=== PATIENT | male | born 1970 | race Caucasian/White ===

== ENCOUNTER 2017-05-07 00:43 | Inpatient (IN) | payer BC, OTHER ==
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
[2017-05-07 01:08] VITALS: BMI 22.8
[2017-05-07] MEDS ORDERED: MAG HYDROX/AL HYDROX/SIMETH 30 ML UNIT-DOSE CUP PO PRN (01:10)
[2017-05-07] MEDS ORDERED: P-EPHED 60MG/TRIPROLIDI 2.5MG TABLET PO PRN (01:10)
[2017-05-07] MEDS ORDERED: LOPERAMIDE HCL 2 MG CAPSULE PO PRN (01:10)
[2017-05-07] MEDS ORDERED: IBUPROFEN 400 MG TABLET (FP) PO PRN (01:10)
[2017-05-07] MEDS ORDERED: MAGNESIUM HYDROX 2400MG/30ML ORAL SUSPENSION 30 ML CUP PO PRN (01:10)
[2017-05-07] MEDS ORDERED: METHADONE HCL 10 MG TABLET (FOR DETOX USE ONLY) PO ONE ×3 (01:10→22:00)
[2017-05-07] MEDS ORDERED: chlordiazePOXIDE HCL 25 MG CAPSULE PO ONE (01:10)
[2017-05-07] MEDS ORDERED: guaiFENesin/D-METHORPHAN HB 10 ML UNIT-DOSE CUPS PO PRN (01:10)
[2017-05-07] MEDS ORDERED: hydrOXYzine PAMOATE 50 MG CAPSULE (FP) PO PRN (01:10)
[2017-05-07] MEDS ORDERED: diphenhydrAMINE HCL 50 MG CAPSULE PO PRN (01:10)
[2017-05-07] MEDS ORDERED: chlordiazePOXIDE HCL 25 MG CAPSULE PO PRN (01:10)
[2017-05-07] MEDS ORDERED: MENTHOL/PHENOL 1 EACH UD MM PRN (01:10)
[2017-05-07] MEDS ORDERED: MAGNESIUM CITRATE 300 ML BOTTLE PO PRN (01:10)
[2017-05-07] MEDS ORDERED: ACETAMINOPHEN 325 MG TABLET (FP) PO PRN (01:10)
[2017-05-07] MEDS: chlordiazePOXIDE HCL 25 MG CAPSULE PO SCH ×4 (06:02→22:41)
--- NOTE | 2017-05-07 09:59 | EKG ---
Test Reason : Blood Pressure : / mmHG Vent. Rate : 066 BPM Atrial Rate : 066 BPM P-R Int : 138 ms QRS Dur : 096 ms QT Int : 394 ms P-R-T Axes : 076 027 018 degrees QTc Int : 413 ms NORMAL SINUS RHYTHM NORMAL ECG NO PREVIOUS ECGS AVAILABLE Confirmed by ROGER RED MD ([id number]) on 05/07/2017 9:58:32 AM Referred By: Confirmed By:ROGER RED MD
[2017-05-07 10:07] LABS: MCH 26.7 pg (25.7-33.7); MCHC 32.4 g/dl (32.0-35.9); MEAN CELL VOLUME 82.2 fl (80-96); MEAN PLT VOLUME 6.5 fl (7.5-11.1); PLATELET COUNT 280 K/MM3 (134-434); RDW 14.8 % (11.9-15.9); WHITE BLOOD COUNT 6.6 K/mm3 (4.0-10.0)
[2017-05-07 10:49] LABS: ALBUMIN 2.7 g/dl (3.4-5.0); ALK PHOS 94 U/L (45-117); ANION GAP 5 (8-16); BILIRUBIN,TOTAL 0.5 mg/dL (0.2-1.0); CALCIUM 8.6 mg/dL (8.5-10.1); CO2 32 mmol/L (21-32); CREATININE 0.9 mg/dL (0.7-1.3); GLUCOSE,RANDOM 94 mg/dL (74-106); SGOT/AST 61 U/L (15-37); SGPT/ALT 41 U/L (12-78); TOT PROT 6.2 g/dl (6.4-8.2)
[2017-05-07 11:27] LABS: HIV 1 & 2 AB NEGATIVE; HIV 1 AGp24 NEGATIVE
[2017-05-07] MEDS: PRENATAL VITAMINS W/ FOLIC ACID TABLET (FP) PO SCH (11:32)
--- NOTE | 2017-05-07 13:45 | PN ---
S Progress Note Note: Vp Production made 3 attempts to evaluate patient. In all three occasions, he was found in bed sleeping, very drowsy not making much sense in his response. Interview deferred for another time
--- NOTE | 2017-05-07 16:22 | PN ---
[facility] Progress Note Note: Patient denies any complaints at this time. Last Vital Signs Temp Pulse Resp BP Pulse Ox 97.4 F L 67 18 125/68 05/07/17 03:07 05/07/17 03:07 05/07/17 03:30 05/07/17 03:07 VSS, patient is in nad; patient encouraged to drink lots of water,continue detox Laboratory Tests 05/07/17 05/07/17 05/07/17 08:00 08:00 08:00 WBC 6.6 RBC 4.68 Hgb 12.5 Hct 38.5 MCV 82.2 MCH 26.7 MCHC 32.4 RDW 14.8 Plt Count 280 MPV 6.5 L Sodium 140 Potassium 3.9 Chloride 103 Carbon Dioxide 32 Anion Gap 5 L BUN 14 Creatinine 0.9 Creat Clearance w eGFR > 60 Random Glucose 94 Calcium 8.6 Total Bilirubin 0.5 AST 61 H ALT 41 Alkaline Phosphatase 94 Total Protein 6.2 L Albumin 2.7 L RPR Titer Nonreactive HIV 1&2 Antibody Screen HIV P24 Antigen 05/07/17 08:00 WBC RBC Hgb Hct MCV MCH MCHC RDW Plt Count MPV Sodium Potassium Chloride Carbon Dioxide Anion Gap BUN Creatinine Creat Clearance w eGFR Random Glucose Calcium Total Bilirubin AST ALT Alkaline Phosphatase Total Protein Albumin RPR Titer HIV 1&2 Antibody Screen Negative HIV P24 Antigen Negative Labs noted
[2017-05-07] MEDS: THIAMINE HCL 100 MG TABLET (FP) PO SCH (22:41)
[2017-05-08] MEDS: chlordiazePOXIDE HCL 25 MG CAPSULE PO SCH ×4 (05:54→22:28)
--- NOTE | 2017-05-08 09:30 | PN ---
[facility] CIWA - CIWA Score Nausea/Vomitin Muscle Tremors: 2 Anxiety: 4-Mod. Anxious/Guarded Agitation: 4-Moderately Restless Paroxysmal Sweats: 3 Orientation: 0-Oriented Tacttile Disturbances: 0-None Auditory Disturbances: 0-None Visual Disturbances: 0-None Headache: 0-None Present CIWA-Ar Total Score: 16 BHS COWS - Scale Resting Pulse: 1= [place] 81-100 Sweatin= Chills/Flushing Restless Observation: 1= Difficult to Sit Still Pupil Size: 1= Pupils >than Normal Bone or Joint Aches: 1= Mild Discomfort Runny Nose/ Eye Tearin= Nasal Congestion GI Upset > 30mins: 2= Nausea/Diarrhea Tremor Observation of Outstretched Hands: 1= Tremor [place], Not Seen Yawning Observation: 1= 1-2x During Session Anxiety or Irritability: 2=Irritable/Anxious Goose Flesh Skin: 3=Piloerection COWS Score: 15 S Progress Note (SOAP) Subjective: nausa, sweats, interrupted sleep, anxiety, mild treor, does nto want to have vital signs, requesting detox from [facility] ldm 04/22 10mg confirmed by nurse Objective: 05/08/17 09:29 Vital Signs - 24 hr 05/07/17 05/07/17 05/08/17 17:29 22:08 00:30 Temperature 98.2 F 98 F Pulse Rate 72 90 Respiratory 18 18 18 Rate Blood Pressure 134/77 135/71 05/08/17 05/08/17 05/08/17 03:30 06:23 09:14 Temperature 97.1 F L 97.7 F Pulse Rate 79 91 H Respiratory 18 18 20 Rate Blood Pressure 125/86 150/82 Laboratory Tests 05/07/17 05/07/17 05/07/17 08:00 08:00 08:00 WBC 6.6 RBC 4.68 Hgb 12.5 Hct 38.5 MCV 82.2 MCH 26.7 MCHC 32.4 RDW 14.8 Plt Count 280 MPV 6.5 L Sodium 140 Potassium 3.9 Chloride 103 Carbon Dioxide 32 Anion Gap 5 L BUN 14 Creatinine 0.9 Creat Clearance w eGFR > 60 Random Glucose 94 Calcium 8.6 Total Bilirubin 0.5 AST 61 H ALT 41 Alkaline Phosphatase 94 Total Protein 6.2 L Albumin 2.7 L RPR Titer Nonreactive HIV 1&2 Antibody Screen HIV P24 Antigen 05/07/17 08:00 WBC RBC Hgb Hct MCV MCH MCHC RDW Plt Count MPV Sodium Potassium Chloride Carbon Dioxide Anion Gap BUN Creatinine Creat Clearance w eGFR Random Glucose Calcium Total Bilirubin AST ALT Alkaline Phosphatase Total Protein Albumin RPR Titer HIV 1&2 Antibody Screen Negative HIV P24 Antigen Negative Assessment: 05/08/17 09:29 withdrawal sx, patient not cooperating with vital signs Plan: cont detox, patient iformed he can not be mediated unless he has his vitalsigns taken, fluids, encourage ambulation, ensure, symptomatic relief of withdrawal
[2017-05-08] MEDS ORDERED: METHADONE HCL 5 MG TABLET (FOR DETOX USE ONLY) PO SCH (10:00)
[2017-05-08] MEDS: PRENATAL VITAMINS W/ FOLIC ACID TABLET (FP) PO SCH (10:37)
--- NOTE | 2017-05-08 12:25 | CONSULT ---
[facility] Psychiatric Consult - Data Date of interview: 05/08/17 Admission source: [facility] Identifying data: Patient refused psychiatric interview.Nursing staff is made aware.
[2017-05-08 13:42] LABS: URINE APPEARANCE CLEAR; URINE BILIRUBIN NEGATIVE (NEGATIVE); URINE BLOOD NEGATIVE (NEGATIVE); URINE COLOR COLORLESS; URINE GLUCOSE (UA) NEGATIVE (NEGATIVE); URINE KETONE NEGATIVE (NEGATIVE); URINE LEUK ESTERASE NEGATIVE (NEGATIVE); URINE NITRITE NEGATIVE (NEGATIVE); URINE PROTEIN NEGATIVE (NEGATIVE); URINE UROBILINOGEN NEGATIVE mg/dL (0.2-1.0)
[2017-05-08] MEDS: THIAMINE HCL 100 MG TABLET (FP) PO SCH (22:28)
[2017-05-09] MEDS: chlordiazePOXIDE 5 MG CAPSULE PO SCH ×2 (06:26→10:27)
[2017-05-09 09:23] VITALS: TEMP 98.6
[2017-05-09] MEDS ORDERED: METHADONE HCL 5 MG TABLET (FOR DETOX USE ONLY) PO SCH (10:00)
[2017-05-09] MEDS: PRENATAL VITAMINS W/ FOLIC ACID TABLET (FP) PO SCH (10:26)
--- NOTE | 2017-05-09 12:07 | PN ---
[facility] CIWA - CIWA Score Nausea/Vomitin-No Nausea/No Vomiting Muscle Tremors: 2 Anxiety: 5 Agitation: 3 Paroxysmal Sweats: 2 Orientation: 2-Disoriented Date<2 days Tacttile Disturbances: 3-Moderate Itch/Numb/Burn Auditory Disturbances: 2-Mild Harshness/Frighten Visual Disturbances: 0-None Headache: 0-None Present CIWA-Ar Total Score: 19 BHS COWS - Scale Resting Pulse: 1= [place] 81-100 Sweatin= Chills/Flushing Restless Observation: 1= Difficult to Sit Still Pupil Size: 0= Normal to Room Light Bone or Joint Aches: 2= Severe Diffuse Aches Runny Nose/ Eye Tearin= Nasal Congestion GI Upset > 30mins: 1= Stomach Cramp Tremor Observation of Outstretched Hands: 2= Slight Tremor Visible Yawning Observation: 1= 1-2x During Session Anxiety or Irritability: 2=Irritable/Anxious Goose Flesh Skin: 3=Piloerection COWS Score: 15 S Progress Note (SOAP) Subjective: Tremors, Sweating, Body Aches, Anxious. Objective: PT. A & O X 2 (DISORIENTED ABOUT DAY / DATE). PT. OBSERVED AMBULATING ON UNIT. NO ACUTE DISTRESS. PT. DENIES CHEST PAIN. 05/09/17 12:15 Vital Signs Temperature 98.6 F 05/09/17 09:22 Pulse Rate 90 05/09/17 09:22 Respiratory Rate 20 05/09/17 09:22 Blood Pressure 139/65 05/09/17 09:22 O2 Sat by Pulse Oximetry (%) Laboratory Tests 05/07/17 05/07/17 05/07/17 08:00 08:00 08:00 WBC 6.6 RBC 4.68 Hgb 12.5 Hct 38.5 MCV 82.2 MCH 26.7 MCHC 32.4 RDW 14.8 Plt Count 280 MPV 6.5 L Sodium 140 Potassium 3.9 Chloride 103 Carbon Dioxide 32 Anion Gap 5 L BUN 14 Creatinine 0.9 Creat Clearance w eGFR > 60 Random Glucose 94 Calcium 8.6 Total Bilirubin 0.5 AST 61 H ALT 41 Alkaline Phosphatase 94 Total Protein 6.2 L Albumin 2.7 L Urine Color Urine Appearance Urine pH Ur Specific [place] Urine Protein Urine Glucose (UA) Urine Ketones Urine Blood Urine Nitrite Urine Bilirubin Urine Urobilinogen RPR Titer Nonreactive HIV 1&2 Antibody Screen HIV P24 Antigen 05/07/17 05/08/17 08:00 11:40 WBC RBC Hgb Hct MCV MCH MCHC RDW Plt Count MPV Sodium Potassium Chloride Carbon Dioxide Anion Gap BUN Creatinine Creat Clearance w eGFR Random Glucose Calcium Total Bilirubin AST ALT Alkaline Phosphatase Total Protein Albumin Urine Color Colorless Urine Appearance Clear Urine pH 7.0 Ur Specific [place] 1.010 Urine Protein Negative Urine Glucose (UA) Negative Urine Ketones Negative Urine Blood Negative Urine Nitrite Negative Urine Bilirubin Negative Urine Urobilinogen Negative RPR Titer HIV 1&2 Antibody Screen Negative HIV P24 Antigen Negative LABS NOTED. Assessment: 05/09/17 12:16 WITHDRAWAL SYMPTOMS. Plan: CONTINUE DETOX. INCREASE DAILY PO FLUID INTAKE.
--- NOTE | 2017-05-09 13:22 | PN ---
[facility] Progress Note Note: Psychiatry Attending's note : Called to evaluate this patient. Reason : wants to leave the unit AMA + threats to harm others. Mr Del Valle is angry for no apparent reason.States that he is going to kill his . Since his admission to [address] [place] [address],patient has refused to talk to psychiatrists. He is angry,hostile,menacing and intimidating.Making overt homicidal threats. " Wait and see.I will kill them all." Patient cannot be managed on this unit. Violent.Patient is converted to 2 PC status.Declines to accept his notice of rights. EMS activated for transfer to the psychiatric department at [facility]. Attempts made to WARN Juju Evans at [phone] : No answer.Message left. [employer] is called for assistance due to this patient's escalating and disruptive behavior. Mr Del Valle is taken to [facility] psychiatric emergency department via EMS. Escorted by officers from [place] [employer].
[2017-05-09 14:30] VITALS: BP 133/68; PULSE 89
[2017-05-10] MEDS ORDERED: chlordiazePOXIDE HCL 10 MG CAPSULE PO SCH (05:00)
[2017-05-11] MEDS ORDERED: METHADONE HCL 10 MG TABLET (FOR DETOX USE ONLY) PO SCH (10:00)
[2017-05-12] MEDS ORDERED: METHADONE HCL 10 MG TABLET (FOR DETOX USE ONLY) PO SCH (06:00)
== END 2017-05-09 13:30 | DRG 773 ==
LOC: YASAS 00:43 → Y3N 00:46
PROVIDERS: ADMIT Internal Medicine; ATTEND Internal Medicine
PROC: HZ2ZZZZ Detoxification Services for Substance Abuse Treatment (ICD-10-PCS; principal; 2017-05-07)
PROC: HZ2ZZZZ Detoxification Services for Substance Abuse Treatment (ICD-10-PCS; 2017-05-07)
DX: F11.23 Opioid dependence with withdrawal (principal); F10.230 Alcohol dependence with withdrawal, uncomplicated; F14.20 Cocaine dependence, uncomplicated; F31.9 Bipolar disorder, unspecified; F43.10 Post-traumatic stress disorder, unspecified; F17.210 Nicotine dependence, cigarettes, uncomplicated; Z59.0 Homelessness
CPT/HCPCS: 36415; 80053; 81003; 85027; 86593; 87389; 93005; 93010

== ENCOUNTER 2021-06-16 15:23 | Inpatient (IN) | payer OTHER ==
[2021-06-16 16:58] VITALS: BMI 26.7
[2021-06-16] MEDS ORDERED: NICOTINE 10 MG CARTRIDGE (INHALER) IH PRN (18:30)
[2021-06-16] MEDS ORDERED: METHOCARBAMOL 500 MG TABLET PO PRN (18:30)
[2021-06-16] MEDS ORDERED: IBUPROFEN 400 MG TABLET (FP) PO PRN (18:30)
[2021-06-16] MEDS ORDERED: ONDANSETRON *ODT* 4 MG TABLET SL PRN (18:30)
[2021-06-16] MEDS ORDERED: MAGNESIUM CITRATE 300 ML BOTTLE PO PRN (18:30)
[2021-06-16] MEDS ORDERED: MAGNESIUM HYDROX 2400MG/30ML ORAL SUSPENSION 30 ML CUP PO PRN (18:30)
[2021-06-16] MEDS ORDERED: BISMUTH SUBSALICYLATE 524 MG/30 ML PO PRN (18:30)
[2021-06-16] MEDS ORDERED: MENTHOL/PHENOL 1 EACH UD MM PRN (18:30)
[2021-06-16] MEDS ORDERED: ACETAMINOPHEN 325 MG TABLET (FP) PO PRN ×2 (18:30)
[2021-06-16] MEDS: MELATONIN 5 MG TABLETS PO SCH (22:29)
[2021-06-16] MEDS: hydrOXYzine PAMOATE 25 MG CAPSULE (FP) PO SCH (22:29)
[2021-06-16] MEDS: THIAMINE HCL 100 MG TABLET (FP) PO SCH (22:29)
[2021-06-17] MEDS: hydrOXYzine PAMOATE 25 MG CAPSULE (FP) PO SCH (06:02)
[2021-06-17] MEDS ORDERED: hydrOXYzine PAMOATE 25 MG CAPSULE (FP) PO PRN (08:45)
[2021-06-17] MEDS ORDERED: methaDONE HCL 10 MG TABLET PO ONE (08:46)
[2021-06-17] MEDS ORDERED: methaDONE HCL 10 MG TABLET ONE (09:08)
[2021-06-17] MEDS: PRENATAL VITAMINS W/ FOLIC ACID TABLET (FP) PO SCH (09:36)
[2021-06-17] MEDS ORDERED: diazePAM 5 MG TABLET PO PRN (10:13)
[2021-06-17 10:16] LABS: HEMATOCRIT 33.1 % (35.4-49); HEMOGLOBIN 11.1 GM/dL (11.7-16.9); MCH 27.7 pg (25.7-33.7); MCHC 33.6 g/dl (32.0-35.9); MEAN CELL VOLUME 82.4 fl (80-96); MEAN PLT VOLUME 6.4 fl (7.5-11.1); PLATELET COUNT 225 10^3/uL (134-434); RBC 4.01 M/mm3 (4.00-5.60); RDW 14.8 % (11.9-15.9)
[2021-06-17 10:43] LABS: ALBUMIN 2.9 g/dl (3.4-5.0); BLOOD UREA NITROGEN 15.4 mg/dL (7-18); CALCIUM 8.6 mg/dL (8.5-10.1)
[2021-06-17 10:46] LABS: CREATININE 1.1 mg/dL (0.55-1.3)
[2021-06-17 10:48] LABS: BILIRUBIN,TOTAL 0.5 mg/dL (0.2-1); TOT PROT 6.6 g/dl (6.4-8.2)
[2021-06-17] MEDS: diazePAM 5 MG TABLET PO SCH ×3 (10:49→22:22)
[2021-06-17] MEDS: MELATONIN 5 MG TABLETS PO SCH (22:21)
[2021-06-17] MEDS: THIAMINE HCL 100 MG TABLET (FP) PO SCH (22:21)
[2021-06-17] MEDS: risperiDONE 1 MG TABLET PO SCH (22:21)
[2021-06-18] MEDS ORDERED: methaDONE HCL 10 MG TABLET ONE (04:35)
[2021-06-18] MEDS: diazePAM 5 MG TABLET PO SCH ×4 (05:25→22:15)
[2021-06-18] MEDS ORDERED: methaDONE HCL 40 MG DISPERSABLE TABLET PO SCH (06:00)
[2021-06-18] MEDS: PRENATAL VITAMINS W/ FOLIC ACID TABLET (FP) PO SCH (10:12)
[2021-06-18] MEDS: SERTRALINE HCL 50 MG TABLET (FP) PO SCH (10:12)
[2021-06-18] MEDS: MELATONIN 5 MG TABLETS PO SCH (22:15)
[2021-06-18] MEDS: risperiDONE 1 MG TABLET PO SCH (22:15)
[2021-06-18] MEDS: THIAMINE HCL 100 MG TABLET (FP) PO SCH (22:15)
[2021-06-18] MEDS: MAG HYDROX/AL HYDROX/SIMETH 30 ML UNIT-DOSE CUP PO PRN (22:16)
[2021-06-19] MEDS ORDERED: methaDONE HCL 10 MG TABLET ONE (04:31)
[2021-06-19] MEDS: diazePAM 5 MG TABLET PO SCH ×3 (05:52→22:11)
[2021-06-19] MEDS: PRENATAL VITAMINS W/ FOLIC ACID TABLET (FP) PO SCH (10:36)
[2021-06-19] MEDS: SERTRALINE HCL 50 MG TABLET (FP) PO SCH (10:36)
[2021-06-19] MEDS: MAG HYDROX/AL HYDROX/SIMETH 30 ML UNIT-DOSE CUP PO PRN (18:29)
[2021-06-19] MEDS: THIAMINE HCL 100 MG TABLET (FP) PO SCH (22:10)
[2021-06-19] MEDS: MELATONIN 5 MG TABLETS PO SCH (22:10)
[2021-06-19] MEDS: risperiDONE 1 MG TABLET PO SCH (22:11)
[2021-06-20] MEDS ORDERED: methaDONE HCL 10 MG TABLET ONE (04:48)
[2021-06-20] MEDS: diazePAM 5 MG TABLET PO SCH ×2 (06:18→17:46)
[2021-06-20] MEDS: SERTRALINE HCL 50 MG TABLET (FP) PO SCH (10:17)
[2021-06-20] MEDS: PRENATAL VITAMINS W/ FOLIC ACID TABLET (FP) PO SCH (10:17)
[2021-06-20] MEDS: MAG HYDROX/AL HYDROX/SIMETH 30 ML UNIT-DOSE CUP PO PRN (17:44)
[2021-06-20] MEDS: MELATONIN 5 MG TABLETS PO SCH (22:51)
[2021-06-20] MEDS: risperiDONE 1 MG TABLET PO SCH (22:51)
[2021-06-20] MEDS: THIAMINE HCL 100 MG TABLET (FP) PO SCH (22:51)
[2021-06-21] MEDS ORDERED: methaDONE HCL 10 MG TABLET ONE (04:32)
[2021-06-21] MEDS ORDERED: diazePAM 5 MG TABLET PO ONE (06:00)
[2021-06-21 08:54] VITALS: BP 144/92; PULSE 100; TEMP 97.1
[2021-06-21] MEDS: PRENATAL VITAMINS W/ FOLIC ACID TABLET (FP) PO SCH (09:00)
[2021-06-21] MEDS: SERTRALINE HCL 50 MG TABLET (FP) PO SCH (09:00)
== END 2021-06-21 09:44 | disposition home or self-care (01) | DRG 773 ==
LOC: YASAS 15:23 → Y3N 19:56
PROVIDERS: ADMIT Allergy & Immunology; ATTEND Allergy & Immunology
PROC: HZ2ZZZZ Detoxification Services for Substance Abuse Treatment (ICD-10-PCS; principal; 2021-06-16)
DX: F11.23 Opioid dependence with withdrawal (principal); F10.230 Alcohol dependence with withdrawal, uncomplicated; F14.20 Cocaine dependence, uncomplicated; F17.210 Nicotine dependence, cigarettes, uncomplicated; F19.24 Other psychoactive substance dependence with psychoactive substance-induced mood disorder; F43.10 Post-traumatic stress disorder, unspecified; Z87.828 Personal history of other (healed) physical injury and trauma; Z88.0 Allergy status to penicillin; Z56.0 Unemployment, unspecified; Z59.00 Homelessness unspecified
CPT/HCPCS: 36415; 80053; 85027; 86780; C9803; J2794; U0003; U0005

== ENCOUNTER 2022-08-31 09:52 | Inpatient (IN) | payer OTHER ==
[2022-08-31 10:23] VITALS: BMI 22.4
[2022-08-31] MEDS ORDERED: MAG HYDROX/AL HYDROX/SIMETH 30 ML UNIT-DOSE CUP PO PRN (10:50)
[2022-08-31] MEDS ORDERED: ACETAMINOPHEN 325 MG TABLET (FP) PO PRN ×2 (10:50)
[2022-08-31] MEDS ORDERED: LOPERAMIDE HCL 2 MG CAPSULE PO PRN (10:50)
[2022-08-31] MEDS ORDERED: hydrOXYzine PAMOATE 25 MG CAPSULE (FP) PO PRN (10:50)
[2022-08-31] MEDS ORDERED: IBUPROFEN 600 MG TABLET (FP) PO PRN (10:50)
[2022-08-31] MEDS ORDERED: BENZOCAINE/MENTHOL (CHLORASEPTIC ) LOZENGE MM PRN (10:50)
[2022-08-31] MEDS ORDERED: MAGNESIUM HYDROX 2400MG/30ML ORAL SUSPENSION 30 ML CUP PO PRN (10:50)
[2022-08-31] MEDS ORDERED: ONDANSETRON *ODT* 4 MG TABLET SL PRN (10:50)
[2022-08-31] MEDS ORDERED: NICOTINE 10 MG CARTRIDGE (INHALER) IH PRN (10:50)
[2022-08-31] MEDS ORDERED: METHOCARBAMOL 500 MG TABLET PO PRN (10:50)
[2022-08-31] MEDS ORDERED: BISMUTH SUBSALICYLATE 262 MG/15 ML BTL PO PRN (10:50)
[2022-08-31] MEDS ORDERED: DICYCLOMINE HCL 10 MG CAPSULE PO PRN (10:50)
[2022-08-31] MEDS ORDERED: POLYETHYLENE GLYCOL (HEALTHYLAX) 3350 17 GM PACKET PO PRN (10:50)
[2022-08-31] MEDS ORDERED: NALOXONE HCL (KLOXXADO) 8 MG SPRAY NS PRN (10:50)
[2022-08-31] MEDS ORDERED: IBUPROFEN 400 MG TABLET (FP) PO PRN (10:50)
[2022-08-31] MEDS ORDERED: diazePAM 5 MG TABLET PO PRN ×2 (10:54→10:55)
[2022-08-31] MEDS: diazePAM 5 MG TABLET PO SCH ×2 (18:01→23:19)
[2022-08-31 18:41] LABS: HEMATOCRIT 35.2 % (35.4-49); HEMOGLOBIN 11.3 GM/dL (11.7-16.9); MCH 26.2 pg (25.7-33.7); MCHC 32.2 g/dl (32.0-35.9); MEAN CELL VOLUME 81.3 fl (80-96); MEAN PLT VOLUME 6.4 fl (7.5-11.1); PLATELET COUNT 228 10^3/uL (134-434); RBC 4.33 M/mm3 (4.00-5.60); RDW 14.3 % (11.9-15.9); WHITE BLOOD COUNT 5.3 K/mm3 (4.0-10.0)
[2022-08-31 18:47] LABS: ALBUMIN 3.1 g/dl (3.4-5.0); CALCIUM 8.7 mg/dL (8.5-10.1)
[2022-08-31 18:50] LABS: CREATININE 1.1 mg/dL (0.55-1.3)
[2022-08-31 18:52] LABS: BILIRUBIN,TOTAL 0.4 mg/dL (0.2-1); TOT PROT 7.1 g/dl (6.4-8.2)
[2022-08-31] MEDS: THIAMINE HCL 100 MG TABLET (FP) PO SCH (23:18)
[2022-08-31] MEDS: MELATONIN 5 MG TABLETS PO SCH (23:18)
[2022-09-01] MEDS: methaDONE 40 MG, methaDONE 20 MG PO SCH (05:20)
[2022-09-01] MEDS: diazePAM 5 MG TABLET PO SCH ×4 (05:20→22:40)
[2022-09-01] MEDS ORDERED: methaDONE HCL 40 MG DISPERSABLE TABLET PO SCH (06:00)
[2022-09-01] MEDS: PRENATAL VITAMINS W/ FOLIC ACID TABLET (FP) PO SCH (10:53)
[2022-09-01] MEDS: MELATONIN 5 MG TABLETS PO SCH (22:40)
[2022-09-01] MEDS: THIAMINE HCL 100 MG TABLET (FP) PO SCH (22:40)
[2022-09-02] MEDS: methaDONE 40 MG, methaDONE 20 MG PO SCH (05:57)
[2022-09-02] MEDS: diazePAM 5 MG TABLET PO SCH ×3 (05:57→22:17)
[2022-09-02] MEDS: PRENATAL VITAMINS W/ FOLIC ACID TABLET (FP) PO SCH (10:35)
[2022-09-02] MEDS: MELATONIN 5 MG TABLETS PO SCH (22:17)
[2022-09-02] MEDS: THIAMINE HCL 100 MG TABLET (FP) PO SCH (22:17)
[2022-09-03] MEDS: methaDONE 40 MG, methaDONE 20 MG PO SCH (06:53)
[2022-09-03] MEDS: diazePAM 5 MG TABLET PO SCH ×2 (06:54→17:45)
[2022-09-03] MEDS: PRENATAL VITAMINS W/ FOLIC ACID TABLET (FP) PO SCH (10:51)
[2022-09-03 11:06] LABS: PH,URINE 5.5 (5.0-8.0); URINE APPEARANCE CLEAR; URINE BILIRUBIN NEGATIVE (NEGATIVE); URINE COLOR YELLOW; URINE GLUCOSE (UA) NEGATIVE (NEGATIVE); URINE KETONE NEGATIVE (NEGATIVE); URINE LEUK ESTERASE NEGATIVE (NEGATIVE); URINE NITRITE NEGATIVE (NEGATIVE); URINE PROTEIN NEGATIVE (NEGATIVE); URINE UROBILINOGEN 0.2 mg/dL (0.2-1.0)
[2022-09-03] MEDS: THIAMINE HCL 100 MG TABLET (FP) PO SCH (22:26)
[2022-09-03] MEDS: MELATONIN 5 MG TABLETS PO SCH (22:26)
[2022-09-04] MEDS ORDERED: diazePAM 5 MG TABLET PO ONE (06:00)
[2022-09-04] MEDS: methaDONE 40 MG, methaDONE 20 MG PO SCH (07:14)
[2022-09-04 09:20] VITALS: BP 138/88; PULSE 100; RESP 18; TEMP 97.7
== END 2022-09-04 09:25 | disposition home or self-care (01) | DRG 773 ==
LOC: YASAS 09:52 → Y3N 11:18
PROVIDERS: ADMIT Allergy & Immunology; ATTEND Family Medicine
PROC: HZ2ZZZZ Detoxification Services for Substance Abuse Treatment (ICD-10-PCS; principal; 2022-08-31)
DX: F10.230 Alcohol dependence with withdrawal, uncomplicated (principal); F11.20 Opioid dependence, uncomplicated; F14.20 Cocaine dependence, uncomplicated; F17.210 Nicotine dependence, cigarettes, uncomplicated; F43.10 Post-traumatic stress disorder, unspecified; M54.50 Low back pain, unspecified; M25.571 Pain in right ankle and joints of right foot; Z28.310 Unvaccinated for COVID-19; Z28.9 Immunization not carried out for unspecified reason; Z88.0 Allergy status to penicillin
CPT/HCPCS: 36415; 73610-TC-RT-FY; 80053; 81003; 85027; 86780; C9803-CS; U0003; U0005